=== PATIENT | male | born 1975 | race Hispanic/Latino ===

== ENCOUNTER 2020-03-04 15:47 | Emergency (ER) | payer OTHER ==
[~2020-03-04] VITALS: Ht 167.6 cm; Wt 68.0 kg
--- NOTE | 2020-03-04 16:11 | NUR ---
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
[2020-03-04] MEDS ORDERED: CYCLOBENZAPRINE HCL 10 MG TAB PO ONE (16:15)
[2020-03-04] MEDS ORDERED: KETOROLAC TROMETHAMINE 60 MG/2 ML VIAL IM ONE (16:15)
[2020-03-04] MEDS ORDERED: CYCLOBENZAPRINE HCL 10 MG TAB ONE (16:27)
[2020-03-04] MEDS ORDERED: KETOROLAC TROMETHAMINE 60 MG/2 ML VIAL ONE (16:28)
[2020-03-04] MEDS ORDERED: CYCLOBENZAPRINE5 MG PO (17:06)
[2020-03-04] MEDS ORDERED: PREDNISONE20 MG PO (17:06)
--- NOTE | 2020-03-04 17:06 | Emergency Department Note ---
History of Present Illnes History of Present Illness Chief Complaint: bilateral low Back Pain s/p lefting heavy weights History of Present Illness This is a 45 year old male. was doing well prior to this. 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 Onset (how long ago): day(s) (2) Location: low back Quality: sharp Radiation: Reports non-radiation Severity: moderate Onset quality: gradual Duration (how long): day(s) (2) Timing of current episode: constant Progression: worsening Chronicity: new Context: Reports trauma/injury; Denies recent illness, Denies recent surgery, Denies recent immobilization, Denies recent travel, Denies new medications, Denies hx of DVT/PE, Denies non- compliance w/ medications Relieving factors: rest Exacerbating factors: movement Associated symptoms: Reports denies other symptoms Treatments prior to arrival: none Past Medical/Family History Physician Review I have reviewed the patient's past medical and family history. Any updates have been documented here. Past Medical History Recent Fever: No Clinical Suspicion of Infectio: No New/Unexplained Change in Ment: No Past Medical History: None Other Surgery: nasal sx Social History Smoking Cessation: Never Smoker Alcohol Use: None Any Illegal Drug Use: No Physically hurt or threatened: No Other Any Pre-Existing Lines (PICC,: No Review of Systems Review of Systems Constitutional: Reports no symptoms EENTM: Reports no symptoms Cardiovascular: Reports no symptoms Respiratory: Reports no symptoms Gastrointestinal: Reports no symptoms Genitourinary: Reports no symptoms Musculoskeletal: Reports as per HPI Integumentary: Reports no symptoms Neurological: Reports no symptoms Psychological: Reports no symptoms Endocrine: Reports no symptoms Hematological/Lymphatic: Reports no symptoms Review of other systems: All other systems negative Physical Exam Related Data Allergies: Coded Allergies: No Known Allergies (Unverified , 03/04/20) Triage Vital Signs Vital Signs Date Time Temp Pulse Resp B/P (MAP) Pulse Ox O2 Delivery O2 Flow Rate FiO2 03/04/20 16:06 99.9 68 16 121/66 99 Room Air Vital signs reviewed: Yes Physical Exam CONSTITUTIONAL Constitutional: Present well-developed, Present well-nourished HENT HENT: Present normocephalic, Present atraumatic, Present oropharynx clear/moist, Present nose normal HENT L/R: Present left ext ear normal, Present right ext ear normal EYES Eyes: Reports PERRL, Reports conjunctivae normal NECK Neck: Present ROM normal, Present supple PULMONARY Pulmonary: Present effort normal, Present breath sounds normal CARDIOVASCULAR Cardiovascular: Present regular rhythm, Present heart sounds normal, Present capillary refill normal, Present normal rate GASTROINTESTINAL Abdominal: Present soft, Present nontender, Present bowel sounds normal GENITOURINARY Genitourinary: Present exam deferred SKIN Skin: Present warm, Present dry MUSCULOSKELETAL Musculoskeletal: Present other (+muscle spasms low back, ) NEUROLOGICAL Neurological: Present alert, Present oriented x 3, Present no gross motor or sensory deficits PSYCHOLOGICAL Psychological: Present mood/affect normal, Present judgement normal Critical Care Time Comments pain improved s/p medsd Assessment & Plan Medical Decision Making MDM see below Assessment & Plan Final Impression: (1) Lumbar strain Depart Disposition: HOME, SELF-CARE Last Vital Signs Date Time Temp Pulse Resp B/P (MAP) Pulse Ox O2 Delivery O2 Flow Rate FiO2 03/04/20 16:06 99.9 68 16 121/66 99 Room Air Home Meds Active Scripts Cyclobenzaprine Hcl (FLEXERIL) 5 Mg Tablet, 10 MG PO Q8H PRN for MUSCLE SPASMS, #30 TAB TAKE AFTER PREDNISONE TO CONTROL PAIN IF NEED BE Prov:AARON PASCAL 03/04/20 Prednisone (PREDNISONE) 20 Mg Tab, 60 MG PO DAILY PRN for MODERATE PAIN (4-6), #15 TAB TAKE ALL 3 20 MG PILLS AT ONCE Prov:AARON PASCAL 03/04/20 Medications in the ED Ketorolac Tromethamine 60 mg ONCE ONCE IM Last administered on 03/04/20at 16:24; Admin Dose 60 MG; Start 03/04/20 at 16:15; Stop 03/04/20 at 16:16; Status DC Cyclobenzaprine HCl 10 mg ONCE ONCE PO Last administered on 03/04/20at 16:24; Admin Dose 10 MG; Start 03/04/20 at 16:15; Stop 03/04/20 at 16:16; Status DC Cyclobenzaprine HCl 10 mg STK-MED ONCE .ROUTE ; Start 03/04/20 at 16:27; Stop 03/04/20 at 16:22; Status DC Ketorolac Tromethamine 60 mg STK-MED ONCE .ROUTE ; Start 03/04/20 at 16:28; Stop 03/04/20 at 16:22; Status DC AARON PASCAL Mar 04, 2020 17:06
== END 2020-03-04 17:11 | disposition home or self-care (01) ==
LOC: FSED 16:31
DX: S33.5XXA Sprain of ligaments of lumbar spine, initial encounter (principal); X50.0XXA Overexertion from strenuous movement or load, initial encounter; Y99.0 Civilian activity done for income or pay
CPT/HCPCS: 99282; J1885